=== PATIENT | female | born 1930 | race Caucasian/White ===

== ENCOUNTER → 2018-01-27 | Outpatient (CLI) | payer MEDICARE ==
[~2018-01-27] MED LIST: ALLO300T PO; ASPI-496 PO; ASPI-650 PO; CALC1TAB86 PO; ENAL5TAB PO; LEVO50TA5 PO; REGADENOSON 0.4 MG/5 ML SYRINGE ONE; SIMV20TA PO
== END | disposition home or self-care (01) ==
LOC: CVU 10:12
PROVIDERS: ATTEND Internal Medicine Cardiovascular Disease
DX: Z01.810 Encounter for preprocedural cardiovascular examination (principal); I08.3 Combined rheumatic disorders of mitral, aortic and tricuspid valves; I11.9 Hypertensive heart disease without heart failure; I44.7 Left bundle-branch block, unspecified; I44.0 Atrioventricular block, first degree; Z85.42 Personal history of malignant neoplasm of other parts of uterus
CPT/HCPCS: 78452; 93017; 93306; A9502; J2785